=== PATIENT | male | born 1965 | race Caucasian/White ===

== ENCOUNTER 2022-05-12 23:30 | Emergency (ER) | payer SELFPAY ==
--- NOTE | 2022-05-13 00:20 | NUR ---
56 y/o M BIB BLS ambulance with c/o headache and lightheadedness x2 hours s/p using Viagra. C/o 01/04 headache at this time. Denies any LOC, N&V, fever, or CP/SOB. Arrived to ED in no acute distress. Breathing adequately on RA.
[2022-05-13 00:22] VITALS: BP_SYST 152
--- NOTE | 2022-05-13 00:30 | NUR ---
ER at bedside examining patient.
[2022-05-13] MEDS ORDERED: KETOROLAC TROMETHAMINE 60 MG/2 ML VIAL IM ONE (00:45)
[2022-05-13] MEDS ORDERED: IBUP-1971 PO (00:45)
[2022-05-13 01:00] VITALS: BP_SYST 147
--- NOTE | 2022-05-13 01:02 | NUR ---
Patient given written and verbal discharge instructions and verbalizes understanding. ER MD SUÁREZ discussed with patient the results and treatment provided. Patient in stable condition. ID arm band removed. Rx of IBUPROFEN SENT TO PHARMACY OF CHOICE. Patient educated on pain management and to follow up with PMD. Pain Scale 3/10. Pt did not want to wait for pain reassessment s/p Toradol inj. at bedside. Opportunity for questions provided and answered. Medication side effect fact sheet provided.
== END 2022-05-13 01:02 | disposition home or self-care (01) ==
LOC: SED 23:30
DX: R51.9 Headache, unspecified (principal); R42 Dizziness and giddiness
CPT/HCPCS: 96372; 99283; J1885